=== PATIENT | male | born 1985 | race Caucasian/White ===

== ENCOUNTER 2021-01-27 13:13 | Emergency (ER) | payer OTHER ==
[~2021-01-27] VITALS: Ht 172.7 cm; Wt 68.0 kg
--- NOTE | ~2021-01-27 | EMS ---
[address] [address] EMS Patient Care Report Name: STEVE MEEKS Room #: DEP ANI Hernandez#: [id number] Admission: 01/27/21 Attend Phys: Discharge: 01/27/21 Date of : [birth year] Report #: [id number] THIS REPORT FOR: //name// Report Transmitted: 01/30/2021 11:58 EMS Care Summary [place], [place]/[facility] Incident [id number] @ 01/27/2021 12:41 Incident Location [address] [place] [id number] Patient STEVE MEEKS Male, 35 Years 1985 Patient Address HOMELESS Patient History Substance Abuse, Patient Allergies No known allergies, Patient Medications None Reported, Chief Complaint suicidal Disposition Transported No Lights/[place] [facility] Reason Unknown Problem/Person Down Transported To [facility] Narrative Patient was found laying on the floor of the police van. The police explained that the patient was being placed under arrest for breaking into a home when he laid on the floor of the van and refused to move or talk. The patient would talk to ems but only answer the questions he wanted to. The patient asked ems if they would kill him. The patient made several statements about how he wants [address] [address] EMS Patient Care Report Name: STEVE MEEKS Room #: DEP ER David#: [id number] Admission: 01/27/21 Attend Phys: Discharge: 01/27/21 Date of : [birth year] Report #: [id number] ems or police to kill him. Patient was transported to the er where care was given to the er nurse. Initial Vitals @13:00P: 78,R: 18,BP: 128/88,Pain: 0/10,GCS: 15,SpO2: 97,Revised Trauma: 12, @12:53P: 114,R: 18,BP: 145/82,Pain: 0/10,GCS: 15,Glucose: 103,CO: 1,SpO2: 100,Revised Trauma: 12, Assessments @12:49MENTAL:Person Oriented,Place Oriented,Event Oriented,Time Oriented,SKIN:HEENT:Head/Face: No Abnormalities,Neck/Airway: No Abnormalities,LUNG SOUNDS:General: No Abnormalities,ABDOMEN:General: No Abnormalities,PELVIS//GI:EXTREMITIES:Left Arm: No Abnormalities,Right Arm: No Abnormalities,Left Leg: No Abnormalities,Right Leg: No Abnormalities,PULSE:NEURO:No Abnormalities, Impression Behavioral/psychiatric episode Procedures @12:48 ALS Assessment Response: UnchangedSucceeded @PTAPatient Restraint Response: UnchangedSucceeded @12:50 Stretcher Response: Unchanged Timeline ELECTRONIC DESIGN ENGINEER,Patient Restraint,Response: UnchangedSucceeded, 12:40,Call Received 12:40,Dispatch Notified 12:41,Dispatched 12:41,En Route 12:46,On Scene 12:47,At Patient 12:48,ALS Assessment,Response: UnchangedSucceeded, 12:50,Stretcher,Response: Unchanged 12:53,BP: 145/82 M,PULSE: 114,RR: 18 R,SPO2: 100 Ox,ETCO2: ,B,PAIN: 0,GCS: 15, 12:58,Depart Scene 13:00,BP: 128/88 M,PULSE: 78,RR: 18 R,SPO2: 97 Ox,ETCO2: ,BG: ,PAIN: 0,GCS: 15, 13:05,At Destination 13:20,Call Closed Disclaimer v1.1 Copyright 2020 [employer] This EMS Care Summary contains data elements from the applicable legal record (which may be displayed differently). It is designed to provide pertinent [facility] [address] [place] [address] EMS Patient Care Report Name: STEVE MEEKS Room #: [facility]P [facility] [id number] Admission: 01/27/21 Attend Phys: Discharge: 01/27/21 Date of : [birth year] Report #: [id number] information for the following purposes: continuity of care, clinical quality, and state data reporting. The complete legal record is available to ED staff and administrators of the receiving hospital in [employer] Patient Tracker. All data is provided "as is."
[2021-01-27 13:14] VITALS: BP 156/86
[2021-01-27 14:02] LABS: HEMATOCRIT 40.5 % (42.0-52.0); HEMOGLOBIN 13.3 gm/dL (14.0-18.0); MCH 28.7 pg (26.0-34.0); MCHC 32.9 g/dL (28.0-37.0); MCV 87.2 fL (80.0-100.0); RBC 4.64 mil/uL (4.50-6.00); RDW 14.3 % (10.5-14.5); WBC 9.5 thou/uL (4.0-11.0)
[2021-01-27 14:13] LABS: CALCIUM 8.7 mg/dL (8.5-10.1); POTASSIUM 3.3 mmol/L (3.5-5.1)
[2021-01-27 14:38] LABS: AMP/METHAMP POSITIVE (Negative); BARBITURATES Negative (Negative); BENZODIAZEPINES Negative (Negative); COCAINE Negative (Negative); METHADONE Negative (Negative); OPIATES Negative (Negative); PCP Negative (Negative)
== END 2021-01-27 15:36 ==
LOC: ER 13:13
PROVIDERS: Emergency Medicine
DX: T43.621A Poisoning by amphetamines, accidental (unintentional), initial encounter (principal); F10.10 Alcohol abuse, uncomplicated; F12.10 Cannabis abuse, uncomplicated; Y90.0 Blood alcohol level of less than 20 mg/100 ml; Y92.89 Other specified places as the place of occurrence of the external cause